=== PATIENT | male | born 1965 | race Caucasian/White ===

== ENCOUNTER 2019-06-02 15:55 | Inpatient (IN) | payer OTHER ==
[2019-06-02] VITALS (13 sets, daily range): BP systolic 95–127; BP diastolic 79–95; PULSE 110–125; RESP 26–54; Ht 165.1 cm; Wt 70.5 kg
[~2019-06-02] VITALS: Ht 165.1 cm; Wt 70.5 kg
[~2019-06-02 15:55] MED LIST: ASPI-831 PO; ATOR40TA68 ORAL; ATRO ORAL; BLOO-1101 MC; BLOO1EAC85 MC; CARV3.1260 PO; CLOP75TA28 PO; FLUT100D ORAL; FURO40TA4 PO; GLIP10TA14 ORAL; LANT3I SC; LOSA25TA2 PO; METF100010 ORAL; NAPR-958 ORAL; NOVO3I SC; PRED20TA PO
[2019-06-02] MEDS ORDERED: ACETAMINOPHEN 325 MG TAB PO PRN ×2 (17:30→18:00)
[2019-06-02] MEDS ORDERED: ONDANSETRON 4 MG INJ IV PRN ×2 (17:30→18:00)
[2019-06-02] MEDS ORDERED: FUROSEMIDE 40 MG INJ IV ONE (17:30)
[2019-06-02] MEDS ORDERED: FUROSEMIDE 100 MG INJ IV SCH (18:00)
[2019-06-02] MEDS ORDERED: NACL 0.9% 3 ML SYG IV SCH (18:00)
[2019-06-02] MEDS: FUROSEMIDE 40 MG INJ IV SCH (18:03)
[2019-06-02] MEDS ORDERED: GLUCOSE GEL 15 GRAM TUBE BUCCAL PRN (18:30)
[2019-06-02] MEDS ORDERED: GLUCAGON 1 MG INJ IM PRN (18:30)
[2019-06-02] MEDS ORDERED: GLUCOSE GEL 15 GRAM TUBE PO PRN ×2 (18:30)
[2019-06-02] MEDS ORDERED: DEXTROSE 50% 50 ML SYRINGE IV PRN ×2 (18:30)
[2019-06-02] MEDS: ATORVASTATIN 40 MG TAB PO SCH (21:07)
[2019-06-02] MEDS: FAMOTIDINE 20 MG TAB PO SCH (21:07)
[2019-06-02] MEDS: INSULIN ASPART [NOVOLOG] 3 ML PEN SC SCH (21:43)
[2019-06-03] VITALS (47 sets, daily range): BP systolic 87–116; BP diastolic 62–91; PULSE 91–112; RESP 19–46
[2019-06-03] MEDS: ACCU-CHEK XX SCH (01:48)
[2019-06-03] MEDS: PIPER-TAZO 3.375 GM IV (PMX) 100 ML IVPB SCH ×4 (05:25→23:46)
[2019-06-03] MEDS: FUROSEMIDE 40 MG INJ IV SCH (05:26)
[2019-06-03] MEDS: ASPIRIN 81 MG TAB PO SCH (08:41)
[2019-06-03] MEDS: FAMOTIDINE 20 MG TAB PO SCH ×2 (08:41→20:48)
[2019-06-03] MEDS: CLOPIDOGREL 75 MG TAB PO SCH (08:41)
[2019-06-03] MEDS: ENOXAPARIN 30 MG/0.3 ML SYG SC SCH (08:42)
[2019-06-03] MEDS: INSULIN ASPART [NOVOLOG] 3 ML PEN SC SCH ×4 (09:00→20:52)
[2019-06-03] MEDS: ATORVASTATIN 40 MG TAB PO SCH (20:48)
[2019-06-04] VITALS (20 sets, daily range): BP systolic 87–107; BP diastolic 63–81; PULSE 89–102; RESP 18–36
[2019-06-04] MEDS: ACCU-CHEK XX SCH (02:00)
[2019-06-04] MEDS: PIPER-TAZO 3.375 GM IV (PMX) 100 ML IVPB SCH ×3 (05:20→17:28)
[2019-06-04] MEDS: INSULIN ASPART [NOVOLOG] 3 ML PEN SC SCH ×4 (07:58→21:00)
[2019-06-04] MEDS: FUROSEMIDE 40 MG TAB PO SCH ×2 (08:00→17:28)
[2019-06-04] MEDS: FAMOTIDINE 20 MG TAB PO SCH ×2 (08:00→21:31)
[2019-06-04] MEDS: CLOPIDOGREL 75 MG TAB PO SCH (08:00)
[2019-06-04] MEDS: ASPIRIN 81 MG TAB PO SCH (08:00)
[2019-06-04] MEDS: ENOXAPARIN 30 MG/0.3 ML SYG SC SCH (08:18)
[2019-06-04] MEDS: ATORVASTATIN 40 MG TAB PO SCH (21:31)
[2019-06-04] MEDS: INSULIN GLARGINE [LANTus] (100 UNITS/ML) SYG SC SCH (21:35)
[2019-06-05] MEDS: PIPER-TAZO 3.375 GM IV (PMX) 100 ML IVPB SCH ×4 (00:09→17:32)
[2019-06-05] MEDS: ACCU-CHEK XX SCH (02:00)
[2019-06-05 03:35] VITALS: BP 98/67; PULSE 90; RESP 18
[2019-06-05] MEDS: FUROSEMIDE 40 MG TAB PO SCH ×2 (05:48→17:32)
[2019-06-05 07:44] VITALS: BP 102/68; PULSE 87; RESP 18
[2019-06-05] MEDS: ASPIRIN 81 MG TAB PO SCH (08:00)
[2019-06-05] MEDS: CLOPIDOGREL 75 MG TAB PO SCH (08:00)
[2019-06-05] MEDS: FAMOTIDINE 20 MG TAB PO SCH ×2 (08:00→21:05)
[2019-06-05] MEDS: INSULIN ASPART [NOVOLOG] 3 ML PEN SC SCH ×4 (08:08→21:14)
[2019-06-05] MEDS: ENOXAPARIN 30 MG/0.3 ML SYG SC SCH (08:09)
[2019-06-05 12:00] VITALS: BP 97/56; PULSE 73; RESP 20
[2019-06-05 17:00] VITALS: BP 121/69; PULSE 84; RESP 18
[2019-06-05 19:38] VITALS: BP 91/64; PULSE 94; RESP 18
[2019-06-05] MEDS: INSULIN GLARGINE [LANTus] (100 UNITS/ML) SYG SC SCH (20:00)
[2019-06-05] MEDS: ATORVASTATIN 40 MG TAB PO SCH (21:05)
[2019-06-05 23:55] VITALS: BP 100/64; PULSE 88; RESP 18
[2019-06-06] MEDS: PIPER-TAZO 3.375 GM IV (PMX) 100 ML IVPB SCH ×5 (00:07→23:10)
[2019-06-06] MEDS: ACCU-CHEK XX SCH (02:15)
[2019-06-06 03:42] VITALS: BP 93/61; PULSE 84; RESP 18
[2019-06-06] MEDS: FUROSEMIDE 40 MG TAB PO SCH (05:44)
[2019-06-06 07:31] VITALS: BP 95/64; PULSE 86; RESP 19
[2019-06-06] MEDS: INSULIN ASPART [NOVOLOG] 3 ML PEN SC SCH ×4 (08:00→20:27)
[2019-06-06] MEDS: ASPIRIN 81 MG TAB PO SCH (08:16)
[2019-06-06] MEDS: CLOPIDOGREL 75 MG TAB PO SCH (08:17)
[2019-06-06] MEDS: FAMOTIDINE 20 MG TAB PO SCH ×2 (08:17→20:14)
[2019-06-06] MEDS: ENOXAPARIN 30 MG/0.3 ML SYG SC SCH (08:23)
[2019-06-06] MEDS ORDERED: FUROSEMIDE 40 MG TAB PO SCH (09:00)
[2019-06-06 11:18] VITALS: BP 94/54; PULSE 87; RESP 19
[2019-06-06] MEDS: FUROSEMIDE 40 MG INJ IV SCH (11:40)
[2019-06-06] MEDS: METHYLPREDNISOLONE 40 MG INJ IV SCH ×2 (13:18→21:24)
[2019-06-06 15:25] VITALS: BP 93/66; PULSE 85; RESP 18
[2019-06-06 20:09] VITALS: BP 98/63; PULSE 96; RESP 18
[2019-06-06] MEDS: ATORVASTATIN 40 MG TAB PO SCH (20:14)
[2019-06-06] MEDS ORDERED: INSULIN ASPART [NOVOLOG] 3 ML PEN SC ONE (20:30)
[2019-06-06] MEDS ORDERED: INSULIN GLARGINE [LANTus] (100 UNITS/ML) SYG SC ONE (20:30)
[2019-06-06] MEDS: INSULIN GLARGINE [LANTus] (100 UNITS/ML) SYG SC SCH (20:44)
[2019-06-06 23:45] VITALS: BP 101/57; PULSE 94; RESP 20
[2019-06-07] MEDS: ACCU-CHEK XX SCH (01:13)
[2019-06-07 04:00] VITALS: BP 101/66; PULSE 89; RESP 20
[2019-06-07] MEDS: METHYLPREDNISOLONE 40 MG INJ IV SCH ×3 (06:06→22:01)
[2019-06-07] MEDS: PIPER-TAZO 3.375 GM IV (PMX) 100 ML IVPB SCH ×3 (06:06→18:21)
[2019-06-07 07:22] VITALS: BP 111/59; PULSE 88; RESP 19
[2019-06-07] MEDS: FAMOTIDINE 20 MG TAB PO SCH ×2 (08:08→20:40)
[2019-06-07] MEDS: FUROSEMIDE 40 MG INJ IV SCH (08:08)
[2019-06-07] MEDS: CLOPIDOGREL 75 MG TAB PO SCH (08:08)
[2019-06-07] MEDS: ASPIRIN 81 MG TAB PO SCH (08:08)
[2019-06-07] MEDS: ENOXAPARIN 30 MG/0.3 ML SYG SC SCH (08:15)
[2019-06-07] MEDS: INSULIN ASPART [NOVOLOG] 3 ML PEN SC SCH ×6 (08:15→20:49)
[2019-06-07] MEDS: LOSARTAN 25 MG TAB PO SCH (11:14)
[2019-06-07 11:16] VITALS: BP 95/63; PULSE 96; RESP 19
[2019-06-07 15:13] VITALS: BP 95/57; PULSE 59; RESP 18
[2019-06-07 19:33] VITALS: BP 116/75; PULSE 101; RESP 20
[2019-06-07] MEDS ORDERED: INSULIN GLARGINE [LANTus] (100 UNITS/ML) SYG SC SCH (20:00)
[2019-06-07] MEDS: ATORVASTATIN 40 MG TAB PO SCH (20:40)
[2019-06-07] MEDS ORDERED: INSULIN ASPART [NOVOLOG] 3 ML PEN SC ONE (22:00)
[2019-06-07 23:39] VITALS: BP 97/60; PULSE 83; RESP 18
[2019-06-08] MEDS: PIPER-TAZO 3.375 GM IV (PMX) 100 ML IVPB SCH ×4 (00:23→17:12)
[2019-06-08] MEDS: ACCU-CHEK XX SCH (01:53)
[2019-06-08] MEDS ORDERED: ACCU-CHEK XX SCH (02:00)
[2019-06-08 03:21] VITALS: BP 103/63; PULSE 81; RESP 17
[2019-06-08] MEDS: METHYLPREDNISOLONE 40 MG INJ IV SCH ×3 (05:56→22:00)
[2019-06-08 07:18] VITALS: BP 110/70; PULSE 93; RESP 19
[2019-06-08] MEDS: ASPIRIN 81 MG TAB PO SCH (08:18)
[2019-06-08] MEDS: FAMOTIDINE 20 MG TAB PO SCH ×2 (08:18→21:09)
[2019-06-08] MEDS: CLOPIDOGREL 75 MG TAB PO SCH (08:19)
[2019-06-08] MEDS: LOSARTAN 25 MG TAB PO SCH (08:20)
[2019-06-08] MEDS: FUROSEMIDE 40 MG INJ IV SCH (08:20)
[2019-06-08] MEDS: INSULIN ASPART [NOVOLOG] 3 ML PEN SC SCH ×8 (08:40→21:07)
[2019-06-08] MEDS: ENOXAPARIN 30 MG/0.3 ML SYG SC SCH (08:40)
[2019-06-08 11:03] VITALS: BP 113/73; PULSE 100; RESP 19
[2019-06-08] MEDS: NPH, HUMAN INSULIN ISOPHANE 3ML VIAL SC SCH ×2 (14:57→22:00)
[2019-06-08 15:06] VITALS: BP 97/61; PULSE 85; RESP 19
[2019-06-08 19:43] VITALS: BP 102/63; PULSE 94; RESP 18
[2019-06-08] MEDS ORDERED: INSULIN GLARGINE [LANTus] (100 UNITS/ML) SYG SC SCH (20:00)
[2019-06-08] MEDS: ATORVASTATIN 40 MG TAB PO SCH (21:09)
[2019-06-09] VITALS: BP 100/62; PULSE 81; RESP 18
[2019-06-09] MEDS: PIPER-TAZO 3.375 GM IV (PMX) 100 ML IVPB SCH ×5 (00:50→23:48)
[2019-06-09] MEDS: ACCU-CHEK XX SCH (02:00)
[2019-06-09 04:00] VITALS: BP 101/61; PULSE 87; RESP 18
[2019-06-09] MEDS: METHYLPREDNISOLONE 40 MG INJ IV SCH ×3 (06:34→22:37)
[2019-06-09 07:35] VITALS: BP 106/72; PULSE 89; RESP 19
[2019-06-09] MEDS: NPH, HUMAN INSULIN ISOPHANE 3ML VIAL SC SCH ×3 (08:04→22:41)
[2019-06-09] MEDS: INSULIN ASPART [NOVOLOG] 3 ML PEN SC SCH ×7 (08:27→21:00)
[2019-06-09] MEDS: FAMOTIDINE 20 MG TAB PO SCH ×2 (09:03→21:15)
[2019-06-09] MEDS: CLOPIDOGREL 75 MG TAB PO SCH (09:03)
[2019-06-09] MEDS: ASPIRIN 81 MG TAB PO SCH (09:04)
[2019-06-09] MEDS: FUROSEMIDE 40 MG INJ IV SCH (09:04)
[2019-06-09] MEDS: LOSARTAN 25 MG TAB PO SCH (09:58)
[2019-06-09] MEDS: ENOXAPARIN 30 MG/0.3 ML SYG SC SCH (10:15)
[2019-06-09 11:27] VITALS: BP 101/64; PULSE 92; RESP 18
[2019-06-09 15:09] VITALS: BP 100/56; PULSE 93; RESP 19
[2019-06-09 20:00] VITALS: BP 108/66; PULSE 97; RESP 18
[2019-06-09] MEDS: ATORVASTATIN 40 MG TAB PO SCH (21:15)
[2019-06-09] MEDS: INSULIN GLARGINE [LANTus] (100 UNITS/ML) SYG SC SCH (21:19)
[2019-06-09] MEDS ORDERED: INSULIN ASPART [NOVOLOG] 3 ML PEN SC ONE (21:30)
[2019-06-09] MEDS ORDERED: ACCU-CHEK XX ONE (23:30)
[2019-06-10] VITALS: BP 103/66; PULSE 93; RESP 18
[2019-06-10] MEDS ORDERED: INSULIN ASPART [NOVOLOG] 3 ML PEN SC ONE
[2019-06-10] MEDS: ACCU-CHEK XX SCH (02:00)
[2019-06-10] MEDS ORDERED: ACCU-CHEK XX ONE (02:00)
[2019-06-10] MEDS: PIPER-TAZO 3.375 GM IV (PMX) 100 ML IVPB SCH ×3 (06:20→18:13)
[2019-06-10] MEDS: METHYLPREDNISOLONE 40 MG INJ IV SCH ×3 (06:20→21:10)
[2019-06-10] MEDS: NPH, HUMAN INSULIN ISOPHANE 3ML VIAL SC SCH ×3 (06:23→21:19)
[2019-06-10] MEDS: INSULIN ASPART [NOVOLOG] 3 ML PEN SC SCH ×7 (08:00→21:18)
[2019-06-10] MEDS: FUROSEMIDE 40 MG INJ IV SCH (10:11)
[2019-06-10] MEDS: LOSARTAN 25 MG TAB PO SCH (10:11)
[2019-06-10] MEDS: FAMOTIDINE 20 MG TAB PO SCH ×2 (10:11→21:10)
[2019-06-10] MEDS: ENOXAPARIN 30 MG/0.3 ML SYG SC SCH (10:14)
[2019-06-10 20:00] VITALS: BP 109/69; PULSE 95; RESP 16
[2019-06-10] MEDS: INSULIN GLARGINE [LANTus] (100 UNITS/ML) SYG SC SCH (21:18)
[2019-06-10] MEDS: ATORVASTATIN 40 MG TAB PO SCH (21:32)
[2019-06-11] VITALS (15 sets, daily range): BP systolic 92–140; BP diastolic 63–79; PULSE 84–94; RESP 16–34
[2019-06-11] MEDS: ACCU-CHEK XX SCH (01:12)
[2019-06-11] MEDS: PIPER-TAZO 3.375 GM IV (PMX) 100 ML IVPB SCH ×3 (01:14→11:55)
[2019-06-11] MEDS: METHYLPREDNISOLONE 40 MG INJ IV SCH ×3 (05:22→21:27)
[2019-06-11] MEDS: NPH, HUMAN INSULIN ISOPHANE 3ML VIAL SC SCH ×3 (05:33→21:37)
[2019-06-11] MEDS: INSULIN ASPART [NOVOLOG] 3 ML PEN SC SCH ×7 (07:47→21:37)
[2019-06-11] MEDS: FAMOTIDINE 20 MG TAB PO SCH ×2 (09:27→21:26)
[2019-06-11] MEDS ORDERED: ETOMIDATE 20 MG INJ ONE (13:42)
[2019-06-11] MEDS ORDERED: ROCURONIUM 50 MG INJ ONE (13:42)
[2019-06-11] MEDS ORDERED: FENTAnyl 50 MCG/ML VIAL ONE (13:42)
[2019-06-11] MEDS ORDERED: LIDOCAINE 2% (SDV) 5 ML INJ ONE (13:42)
[2019-06-11] MEDS ORDERED: MIDAZOLAM 1 MG/ML 2 ML INJ ONE (14:17)
[2019-06-11] MEDS ORDERED: LIDOCAINE 4% (MPF) 5 ML INJ ONE (14:20)
[2019-06-11] MEDS ORDERED: LIDOCAINE 1% (MPF) 30 ML INJ ONE (14:42)
[2019-06-11] MEDS ORDERED: METOCLOPRAMIDE 10 MG INJ ONE (14:43)
[2019-06-11] MEDS ORDERED: ONDANSETRON 4 MG INJ ONE (14:43)
[2019-06-11] MEDS ORDERED: SUGAMMADEX SODIUM 200 MG/2 ML VIAL IV ONE ×2 (14:43→15:03)
[2019-06-11] MEDS ORDERED: PHENYLephrine (100 MCG/ML) 10ML SYG ONE (14:49)
[2019-06-11] MEDS ORDERED: ONDANSETRON 4 MG INJ IV PRN (15:00)
[2019-06-11] MEDS ORDERED: MEPERIDINE 25 MG INJ IV PRN (15:00)
[2019-06-11] MEDS ORDERED: ALBUTEROL 0.083% (NEB) 2.5 MG/3 ML AMP HHN PRN (15:00)
[2019-06-11] MEDS ORDERED: FENTAnyl 50 MCG/ML VIAL IV PRN ×3 (15:00)
[2019-06-11] MEDS: FUROSEMIDE 40 MG TAB PO SCH (16:51)
[2019-06-11] MEDS: LOSARTAN 25 MG TAB PO SCH (16:52)
[2019-06-11] MEDS: ENOXAPARIN 30 MG/0.3 ML SYG SC SCH (17:07)
[2019-06-11] MEDS: ATORVASTATIN 40 MG TAB PO SCH (21:26)
[2019-06-11] MEDS: INSULIN GLARGINE [LANTus] (100 UNITS/ML) SYG SC SCH (21:38)
[2019-06-12] MEDS: ACCU-CHEK XX SCH (02:00)
[2019-06-12] MEDS: METHYLPREDNISOLONE 40 MG INJ IV SCH (05:48)
[2019-06-12] MEDS: NPH, HUMAN INSULIN ISOPHANE 3ML VIAL SC SCH (06:01)
[2019-06-12] MEDS: INSULIN ASPART [NOVOLOG] 3 ML PEN SC SCH ×7 (07:46→21:20)
[2019-06-12 07:48] VITALS: BP 113/71; PULSE 83; RESP 18
[2019-06-12] MEDS: LOSARTAN 25 MG TAB PO SCH (09:19)
[2019-06-12] MEDS: CLOPIDOGREL 75 MG TAB PO SCH (09:19)
[2019-06-12] MEDS: FUROSEMIDE 40 MG TAB PO SCH (09:20)
[2019-06-12] MEDS: FAMOTIDINE 20 MG TAB PO SCH ×2 (09:20→20:07)
[2019-06-12] MEDS: ENOXAPARIN 30 MG/0.3 ML SYG SC SCH (09:24)
[2019-06-12 12:03] VITALS: BP_SYST 104; BP_SYST 118; BP_DIAS 75; PULSE 87; RESP 18
[2019-06-12 16:16] VITALS: BP 112/71; PULSE 83; RESP 18
[2019-06-12] MEDS: ATORVASTATIN 40 MG TAB PO SCH (20:07)
[2019-06-12 20:18] VITALS: BP 99/60; PULSE 97; RESP 19
[2019-06-12] MEDS: INSULIN GLARGINE [LANTus] (100 UNITS/ML) SYG SC SCH (21:20)
[2019-06-13] VITALS: BP 87/54; PULSE 88; RESP 18
[2019-06-13] MEDS: ALBUMIN HUMAN 25% 100 ML IV SCH ×2 (00:35→01:14)
[2019-06-13] MEDS: ACCU-CHEK XX SCH (01:14)
[2019-06-13 04:03] VITALS: BP 92/66; PULSE 81; RESP 18
[2019-06-13 07:50] VITALS: BP 89/55; PULSE 83; RESP 20
[2019-06-13] MEDS: INSULIN ASPART [NOVOLOG] 3 ML PEN SC SCH ×7 (08:00→20:21)
[2019-06-13] MEDS: METHYLPREDNISOLONE 40 MG INJ IV SCH (09:00)
[2019-06-13] MEDS: LOSARTAN 25 MG TAB PO SCH (09:00)
[2019-06-13] MEDS: FAMOTIDINE 20 MG TAB PO SCH ×2 (09:40→20:19)
[2019-06-13] MEDS: CLOPIDOGREL 75 MG TAB PO SCH (09:40)
[2019-06-13] MEDS: FUROSEMIDE 40 MG TAB PO SCH (09:44)
[2019-06-13] MEDS: ENOXAPARIN 30 MG/0.3 ML SYG SC SCH (10:00)
[2019-06-13] MEDS: NPH, HUMAN INSULIN ISOPHANE 3ML VIAL SC SCH (10:01)
[2019-06-13 11:00] VITALS: BP 93/60; PULSE 89; RESP 18
[2019-06-13 15:35] VITALS: BP 100/62
[2019-06-13] MEDS ORDERED: predniSONE 20 MG TAB PO ONE (17:45)
[2019-06-13 19:49] VITALS: BP 98/71; PULSE 86; RESP 18
[2019-06-13] MEDS: ATORVASTATIN 40 MG TAB PO SCH (20:19)
[2019-06-13] MEDS: INSULIN GLARGINE [LANTus] (100 UNITS/ML) SYG SC SCH (20:22)
[2019-06-14] MEDS: ACCU-CHEK XX SCH (02:21)
[2019-06-14 05:39] VITALS: BP 102/74; PULSE 83; RESP 20
[2019-06-14 08:00] VITALS: BP 102/74; PULSE 81; RESP 18
[2019-06-14] MEDS: INSULIN ASPART [NOVOLOG] 3 ML PEN SC SCH ×4 (08:04→11:47)
[2019-06-14] MEDS: FUROSEMIDE 40 MG TAB PO SCH (08:48)
[2019-06-14] MEDS: CLOPIDOGREL 75 MG TAB PO SCH (08:48)
[2019-06-14] MEDS: FAMOTIDINE 20 MG TAB PO SCH (08:48)
[2019-06-14] MEDS: LOSARTAN 25 MG TAB PO SCH (08:49)
[2019-06-14] MEDS: ENOXAPARIN 30 MG/0.3 ML SYG SC SCH (08:57)
[2019-06-14] MEDS: METHYLPREDNISOLONE 40 MG INJ IV SCH (08:58)
[2019-06-14] MEDS: NPH, HUMAN INSULIN ISOPHANE 3ML VIAL SC SCH (09:02)
[2019-06-14 11:20] VITALS: BP 104/62; PULSE 91; RESP 18
== END 2019-06-14 14:00 | disposition home or self-care (01) | DRG 264 ==
LOC: E/R 15:55 → ICU 17:24 → 6WM 06-04 16:56
PROVIDERS: ADMIT Internal Medicine; ATTEND Hospitalist
PROC: 0B9G8ZX Drainage of Left Upper Lung Lobe, Via Natural or Artificial Opening Endoscopic, Diagnostic (ICD-10-PCS; 2019-06-11)
PROC: 0BBG8ZX Excision of Left Upper Lung Lobe, Via Natural or Artificial Opening Endoscopic, Diagnostic (ICD-10-PCS; principal; 2019-06-11 13:00)
DX: I11.0 Hypertensive heart disease with heart failure (principal); J96.00 Acute respiratory failure, unspecified whether with hypoxia or hypercapnia; J98.11 Atelectasis; J84.117 Desquamative interstitial pneumonia; I50.23 Acute on chronic systolic (congestive) heart failure; E11.65 Type 2 diabetes mellitus with hyperglycemia; J84.10 Pulmonary fibrosis, unspecified; I25.2 Old myocardial infarction; Z95.5 Presence of coronary angioplasty implant and graft; Z87.891 Personal history of nicotine dependence; I25.5 Ischemic cardiomyopathy; A49.9 Bacterial infection, unspecified; J47.9 Bronchiectasis, uncomplicated
CPT/HCPCS: 36415; 36600; 71045; 71250; 80048; 80053; 80061; 82803; 82947; 82962; 83036; 83605; 83735; 83880; 84100; 84145; 84443; 84484; 85025; 85049; 85610; 85670; 85730; 86480; 86606; 86635; 87070; 87075; 87081; 87102; 87116; 88309; 93005; 93306; 94660; 97161; J1650; J1815; J1940; J2250; J2370; J2405; J2543; J2765; J2920; J3010; J7512; P9047